=== PATIENT | male | born 1990 | race Caucasian/White ===

== ENCOUNTER 2022-12-07 08:45 | Outpatient (RCR) | payer OTHER, SELFPAY ==
--- NOTE | 2022-09-10 09:14 | PTOPEVAL1 ---
Assessment and note entered by Servando Skinner, PT, DPT Evaluation Information Assessment Status Evaluation Diagnosis post-op lumbar L4-L5 laminectomy Onset january 11, 2022 Subjective Information Pt states he had a lumbar laminectomy in january, prior to his surgery he was having radicular symptoms for 6+ months at many points in time he was physically unable to walk. Prior to his surgery he has [facility] and was not happy with his care or his progress, that is why he is here today. He states he is limited in his amount of time he can sit, as well as stand. He states depending on the chair he can usually sit for 30 mins prior to needing to stand, he states he currently has radicular symptoms after only sitting for 5 mins. He can stand for about an hour prior to having pain. He states he has pain meds from his surgery that he uses intermittently. His primary complaint is pain in the L hip. Reported Pain Level Pain Score 2: Self Report 6: at worst Assessment PT Clinical Summary Quincy Lucas presents to therapy today for his initial evaluation following a post-op lumbar laminectomy performed in January 23. Today he demonstrates good LE strength as this was the primary focus in his prior therapy. He demonstrates decreased core strength, as well as decreased knowledge as when the engage his core during functional mobility. Skilled physical therapy services are indicated to address his core weakness, to improve postural stability, to limit radicular pain, and to return to baseline function that was unlimited prior to his back injury. Plan of Care Interventions Gait Training,Manual Therapy,Neuro Re-education, Patient/Caregiver Educati,Therapeutic Activities, Therapeutic Exercise PT Services Indicated Yes Treatment Frequency and 1x/wk for 8 wks Duration These treatments will address the objective and functional deficits as defined above. The patient will be advanced safely and appropriately in order for the patient to progress towards his/her prior level of function. Additional exercises will be introduced and as well as a comprehensive home exercise program upon discharge, if needed, ?to ensure carryover of functional gains achieved in the clinic. This treatment plan has been reviewed and agreement upon by the patient.
--- NOTE | 2022-10-31 08:42 | PCPTNOTE ---
Patient called to cancel due to work schedule.
--- NOTE | 2022-11-09 14:15 | PTOPPROG ---
Assessment and note entered by Servando Skinner, PT, DPT Evaluation Information Assessment Status Progress Diagnosis post-op lumbar L4-L5 laminectomy Onset january 11, 2022 Subjective Information Pt states he is having a good week. He states he feels like his L leg is getting stronger. He states he had a really bad pain day over the weekend and he was able to get this to go away in 5-10 mins through stretching. He states the amount of time he can sit still depends on the chair, he thinks overall he is able to sit longer than prior. Assessment PT Clinical Summary Quincy presents to therapy today for his progress report following 6 visits of skilled therapy to treat his diagnosis of a post op lumbar laminectomy. Today he reports a decreased frequency in pain and less radicular symptoms. He states his pain now is centralized around his L hip. He demonstrates active and passive LE ROM and resistance testing that is all pain free and WNL. He demonstrates good posture and body mechanics during functional movement assessment. He continues to have one LE longer in supine, long sitting, and in standing. Continuation of skilled physical therapy services are indicated to further manage pain, to address pelvic asymmetries, to further progress towards goals, and to promote unlimited functional mobility. Plan of Care Interventions Gait Training,Manual Therapy,Neuro Re-education, Patient/Caregiver Educati,Therapeutic Activities, Therapeutic Exercise PT Services Indicated Yes Treatment Frequency and 1x/wk for 4 wks Duration These treatments will address the objective and functional deficits as defined above. The patient will be advanced safely and appropriately in order for the patient to progress towards his/her prior level of function. Additional exercises will be introduced and as well as a comprehensive home exercise program upon discharge, if needed, ?to ensure carryover of functional gains achieved in the clinic. This treatment plan has been reviewed and agreement upon by the patient.
--- NOTE | 2022-11-22 08:20 | PCPTNOTE ---
Patient canceled this date due to having a headache.
--- NOTE | 2022-12-10 09:13 | PCPTNOTE ---
This treatment is being continued on visit number [id number]. Please see documentation on both accounts to view progress. Completed interventions, outcomes, and problems have been marked as Inactive to facilitate the copying of the Care plan routine for recurring accounts.
== END 2022-12-07 09:10 | disposition home or self-care (01) ==
LOC: ANHGOSHPT 08:45
DX: Z47.89 Encounter for other orthopedic aftercare (principal); M54.16 Radiculopathy, lumbar region; Z98.890 Other specified postprocedural states
CPT/HCPCS: 97110; 97112; 97140; 97161; 97530

== ENCOUNTER 2022-12-12 08:00 | Outpatient (RCR) | payer OTHER, SELFPAY ==
--- NOTE | 2022-12-10 09:13 | PCPTNOTE ---
The treatment documented on this account is a continuation of the treatment documented on visit number [id number]. Please see documentation on both accounts to view progress. The Plan of Care has been transitioned and updated within the new V#. I have addressed and agree with the discipline specific Problems, Interventions, and Goals for the current certification period. Completed interventions, outcomes, and problems have been marked as Inactive to facilitate the copying of the Care plan routine for recurring accounts.
--- NOTE | 2022-12-12 14:12 | PTOPDC ---
Assessment and note entered by Servando Skinner, PT, DPT Evaluation Information Assessment Status Discharge Diagnosis low back pain Subjective Information Pt states he has not had pain in the last week. He states he was able to make an [address] without an increase in pain. He states today his hamstrings and piriformis are a little sore. Pt reports 90% improvement in overall symptoms since starting therapy. Reported Pain Level Pain Score 0: Self Report Assessment PT Clinical Summary Quincy Lucas presents to therapy today for his progress report following 8 visits of skilled therapy to treat his lumbar laminectomy. Today he demonstrates good lumbar active ROM that is not limited by pain. Today he demonstrates active and passive LE ROM this is WNL and LE strength that is grossly 5/5. He does demonstrate decreased functional strength with unilateral strength and balance challenges. He was instructed in a HEP to continue working on unilateral strength. He has met all of his therapy goals and will be discharged from skilled physical therapy services at this time. Plan of Care PT Services Indicated No Treatment Frequency and to be discharged Duration
== END 2022-12-12 15:12 | disposition home or self-care (01) ==
LOC: ANHGOSHPT 08:00
DX: Z47.89 Encounter for other orthopedic aftercare (principal); M54.16 Radiculopathy, lumbar region; Z98.890 Other specified postprocedural states
CPT/HCPCS: 97112; 97140